=== PATIENT | male | born 1995 | race African-American/Black ===

== ENCOUNTER 2017-11-24 22:05 | Emergency (ER) | payer SELFPAY ==
[2017-11-24 23:18] LABS: ADD MAN DIFF? NO
[2017-11-24 23:20] LABS: BASO % 1 % (0-3); EOS # 0.1 x10^3/uL (0.0-0.7); EOS % 1 % (0-3); HEMATOCRIT 42.6 % (39.0-53.0); HEMOGLOBIN 14.4 g/dL (13.0-17.5); LYMPH # 2.4 x10^3/uL (1.0-4.8); LYMPH % 30 % (24-48); MEAN CORPUSCULAR HEMOGLOBIN 33 pg (25-35); MEAN CORPUSCULAR HGB CONC 34 g/dL (31-37); MEAN CORPUSCULAR VOLUME 98 fL (79-100); MONO # 0.5 x10^3/uL (0.0-1.1); MONO % 6 % (0-9); NEUT % 63 % (31-73); PLATELET COUNT 266 x10^3/uL (140-400); RED BLOOD COUNT 4.35 x10^6/uL (4.30-5.70); RED CELL DISTRIBUTION WIDTH 13.9 % (11.5-14.5); WHITE BLOOD COUNT 7.9 x10^3/uL (4.0-11.0)
[2017-11-24 23:26] LABS: BARBITURATES NEG (NEG); BENZODIAZEPINES NEG (NEG); CANNABINOIDS POS (NEG); COCAINE NEG (NEG); METHADONE NEG (NEG); OPIATES NEG (NEG); PHENCYCLIDINE NEG (NEG)
[2017-11-24 23:27] LABS: AMPHETAMINE/METHAMPHETAMINE NEG (NEG); ETHANOL, URINE NEG (NEG)
[2017-11-24 23:39] LABS: ALBUMIN 4.3 g/dL (3.4-5.0); ALBUMIN/GLOBULIN RATIO 1.3 (1.0-1.7); ALK PHOS 50 U/L (46-116); ALT (SGPT) 20 U/L (16-63); ANION GAP 12 (6-14); AST (SGOT) 10 U/L (15-37); BLOOD UREA NITROGEN 11 mg/dL (8-26); BUN/CREATININE RATIO 10 (6-20); CALCIUM 9.1 mg/dL (8.5-10.1); CARBON DIOXIDE 24 mmol/L (21-32); CHLORIDE 103 mmol/L (98-107); CREATINE KINASE 132 U/L (39-308); CREATININE 1.1 mg/dL (0.7-1.3); GFR 103.3; GLUCOSE 184 mg/dL (70-99); SODIUM 139 mmol/L (136-145); TOTAL BILIRUBIN 0.8 mg/dL (0.2-1.0); TOTAL PROTEIN 7.7 g/dL (6.4-8.2)
[2017-11-24 23:41] LABS: POTASSIUM 2.8 mmol/L (3.5-5.1)
[2017-11-24] MEDS: POTASSIUM CHLORIDE 20 MEQ TABLET.ER. PO (23:59)
== END 2017-11-24 23:59 | disposition home or self-care (01) ==
LOC: ER 23:59
DX: F12.10 Cannabis abuse, uncomplicated (principal); F41.9 Anxiety disorder, unspecified; E87.6 Hypokalemia; J45.909 Unspecified asthma, uncomplicated
CPT/HCPCS: 36415; 80053; 80307; 82550; 85025; 93005; 99285-25